=== PATIENT | male | born 1980 | race African-American/Black ===

== ENCOUNTER 2021-03-21 01:01 | Emergency (ER) | payer SELFPAY ==
[~2021-03-21] VITALS: Ht 182.9 cm; Wt 90.9 kg
[~2021-03-21 01:01] MED LIST: AMLO10TA4 PO; IBUP200T77 PO; LEVO750T31 PO; OMEP20CA16 PO; TRAM-48 PO
[2021-03-21] MEDS ORDERED: VANCOMYCIN PER PHARMACY MC PRN (03:15)
[2021-03-21] MEDS ORDERED: LIDOCAINE/EPI/TETRACAINE TOPICAL GEL 3 ML. TP ONE (03:30)
[2021-03-21] MEDS ORDERED: MORPHINE SULFATE 4 MG/ML INJ. IVP ONE ×2 (03:30→07:00)
[2021-03-21] MEDS ORDERED: VANCOMYCIN 2 GM in IV NORMAL SALINE 500ML BAG 500 ML IV ONE (04:00)
[2021-03-21 04:12] LABS: BASO # 0.1 x10^3/uL (0.0-0.2); BASO % 1 % (0-3); EOS # 0.2 x10^3/uL (0.0-0.7); EOS % 1 % (0-3); HEMOGLOBIN 13.5 g/dL (13.0-17.5); LYMPH # 1.4 x10^3/uL (1.0-4.8); LYMPH % 9 % (24-48); MEAN CORPUSCULAR HEMOGLOBIN 31 pg (25-35); MEAN CORPUSCULAR HGB CONC 34 g/dL (31-37); MEAN CORPUSCULAR VOLUME 92 fL (79-100); MONO # 1.1 x10^3/uL (0.0-1.1); MONO % 7 % (0-9); NEUT # 12.8 x10^3/uL (1.8-7.7); NEUT % 82 % (31-73); PLATELET COUNT 313 x10^3/uL (140-400); RED BLOOD COUNT 4.34 x10^6/uL (4.30-5.70); RED CELL DISTRIBUTION WIDTH 13.9 % (11.5-14.5); WHITE BLOOD COUNT 15.7 x10^3/uL (4.0-11.0)
[2021-03-21 04:21] LABS: CALCIUM 8.8 mg/dL (8.5-10.1); GFR 100.1; POTASSIUM 3.7 mmol/L (3.5-5.1)
--- NOTE | 2021-03-21 04:21 | PHYS DOC ---
Past Medical History Past Medical History: Renal Failure Additional Past Medical Histor: RECEIVED ONE ROUND OF DIALYSIS LAST YEAR WITH KIDNEY FAILURE Past Surgical History: No Surgical History Additional Past Surgical Histo: right foot; right finger Smoking Status: Current Every Day Smoker Alcohol Use: None Drug Use: Marijuana General Adult EDM: Chief Complaint: DENTAL PROBLEM HPI: HPI: Patient is a 40 year old male who presents with significant left cheek swelling and pain and redness. He reports symptoms have been present for "a couple days." He admits that he thought this started out as a pimple, and he has been incessantly picking and poking at it with tweezers. He denies fevers or chills. He denies any specific other injury or trauma. He denies any dental or oral injury. He denies any actual dental pain. He has a previous history of scalp abscess. He denies headache, dizziness, nausea vomiting, chest pain, dyspnea, sore throat, voice changes. No other complaints. Review of Systems: Review of Systems: Constitutional: Denies fever or chills. [] Eyes: Denies change in visual acuity. [] HENT: Denies nasal congestion or sore throat. [] Respiratory: Denies cough or shortness of breath. [] Cardiovascular: Denies chest pain or edema. [] GI: Denies abdominal pain, nausea, vomiting Musculoskeletal: Denies back pain or joint pain. [] Integument: Left facial swelling, pain, drainage, redness and abscess Neurologic: Denies headache, focal weakness or sensory changes. [] Lymphatic: Reports that he feels like the glands in front of his left ear are swollen. Psychiatric: Denies depression or anxiety. He does have a history of methamphetamine use. [] Heart Score: C/O Chest Pain: No Risk Factors: Risk Factors: DM, Current or recent (<one month) smoker, HTN, HLP, family history of CAD, obesity. Risk Scores: Score 0 - 3: 2.5% MACE over next 6 weeks - Discharge Home Score 4 - 6: 20.3% MACE over next 6 weeks - Admit for Clinical Observation Score 7 - 10: 72.7% MACE over next 6 weeks - Early Invasive Strategies Current Medications: Current Medications Medications (Trade) Dose Ordered Sig/Tru Start Time Stop Time Status Last Admin Dose Admin Morphine Sulfate (Morphine Sulfate) 4 mg 1X ONCE 03/21/21 03:30 03/21/21 03:31 DC 03/21/21 04:14 4 MG Tetracaine/ Epinephrine/ Lidocaine (Let (Cnyw-[id number]-Tppdm) Gel) 3 ml 1X ONCE 03/21/21 03:30 03/21/21 03:31 DC Vancomycin HCl (Vanco Per Pharmacy) 1 each PRN DAILY PRN 03/21/21 03:15 Vancomycin HCl 2 gm/Sodium Chloride 500 ml @ 250 mls/hr 1X ONCE 03/21/21 04:00 03/21/21 05:59 03/21/21 04:15 250 MLS/HR Allergies: Allergies: Allergies Coded Allergies Type Severity Reaction Last Updated Verified No Known Allergies Allergy Unknown 05/12/15 No Physical Exam: PE: Constitutional: Well developed, well nourished, no acute distress, non-toxic appearance. [] HENT: Normocephalic, atraumatic, bilateral external ears normal, oropharynx is patent, clear, uvula midline, no oropharyngeal or mucosal buccal rash or swelling, no dental tenderness or obvious cute dental trauma. No trismus. No drooling. He has a large left cheek abscess with induration, fluctuance and purulent drainage. There is significant soft tissue swelling and tenderness. Eyes: PERRL, EOMI, conjunctiva normal, no discharge. [] Neck: Normal range of motion, no tenderness, supple, no stridor. [] Cardiovascular:Heart rate regular rhythm, no murmur [] Lungs & Thorax: Bilateral breath sounds clear to auscultation [] Abdomen: Bowel sounds normal, soft, no tenderness, no masses, no pulsatile m asses. [] Skin: Large left cheek abscess with cellulitis, soft tissue swelling, soft tissue tenderness. No crepitus or subcutaneous emphysema. No dusky discoloration or evidence of obvious necrosis. Extremities: No tenderness, no cyanosis, no clubbing, ROM intact, no edema. [] Neurologic: Alert and oriented X 3, normal motor function, normal sensory function, no focal deficits noted. [] Psychologic: Affect normal, judgement normal, mood normal. [] Current Patient Data: Labs: Laboratory Tests Test 03/21/21 04:00 White Blood Count 15.7 x10^3/uL (4.0-11.0) H Red Blood Count 4.34 x10^6/uL (4.30-5.70) Hemoglobin 13.5 g/dL (13.0-17.5) Hematocrit 40.0 % (39.0-53.0) Mean Corpuscular Volume 92 fL (79-100) Mean Corpuscular Hemoglobin 31 pg (25-35) Mean Corpuscular Hemoglobin Concent 34 g/dL (31-37) Red Cell Distribution Width 13.9 % (11.5-14.5) Platelet Count 313 x10^3/uL (140-400) Neutrophils (%) (Auto) 82 % (31-73) H Lymphocytes (%) (Auto) 9 % (24-48) L Monocytes (%) (Auto) 7 % (0-9) Eosinophils (%) (Auto) 1 % (0-3) Basophils (%) (Auto) 1 % (0-3) Neutrophils # (Auto) 12.8 x10^3/uL (1.8-7.7) H Lymphocytes # (Auto) 1.4 x10^3/uL (1.0-4.8) Monocytes # (Auto) 1.1 x10^3/uL (0.0-1.1) Eosinophils # (Auto) 0.2 x10^3/uL (0.0-0.7) Basophils # (Auto) 0.1 x10^3/uL (0.0-0.2) Laboratory Tests 03/21/21 04:00 Vital Signs: Vital Signs Date Time Temp Pulse Resp B/P (MAP) Pulse Ox O2 Delivery O2 Flow Rate FiO2 03/21/21 04:14 18 100 Room Air 03/21/21 03:22 98.9 115 133/92 (106) 98.9 EKG: EKG: [] Radiology/Procedures: Radiology/Procedures: The patient is given IV Morphine x 2 and PO [place] for pain. IV Vancomycin ordered. I have discussed the findings, ddx and plan of care with the patient. He tolerated I&D well. Home care, wound care instructions are given. I instructed him to avoid picking at the area. I recommend that he come back in 2 days for wound check and packing removal. I explained that he may require repeat I&D at that time. He is resting comfortably and reports feeling much better. I explained the importance of taking the full course of his antibiotics, adhering to proper hand hygiene and skin care. He is comfortable with the plan of care and verbalizes understanding of instructions given. Strict return precautions are given. Course & Med Decision Making: Course & Med Decision Making Pertinent Labs and Imaging studies reviewed. (See chart for details) [] María Elenaon Disclaimer: Dragon Disclaimer: This electronic medical record was generated, in whole or in part, using a voice recognition dictation system. Departure Departure Impression: Primary Impression: Facial abscess Disposition: HOME / SELF CARE / HOMELESS Condition: STABLE Referrals: NO PCP (PCP) Patient Instructions: Abscess Additional Instructions: Take the full course of antibiotics. Return to the ER in 2 days for wound check and packing removal. Return sooner for more severe pain, more severe swelling, or any other concerns. Scripts Hydrocodone/Acetaminophen (Hydrocodone-Acetamin 5-325 mg) 1 Each Tablet 1 EACH PO PRN Q4-6HRS PRN for PAIN for 5 Days, #20 TAB 0 Refills Prov: KEITH MOLINA MD 03/21/21 Sulfamethoxazole/Trimethoprim (BACTRIM DS TABLET) 1 Each Tablet 1 TAB PO BID for 10 Days, #20 TAB 0 Refills Prov: RYLEE RENEE DO 03/21/21 RYLEE RENEE DO Mar 21, 2021 04:21
[2021-03-21 04:22] LABS: C-REACTIVE PROTEIN 45.3 mg/L (0-3.3)
[2021-03-21] MEDS ORDERED: LIDOCAINE 1%/EPI 1:100,000 20 ML VIAL. ONE (04:55)
--- NOTE | 2021-03-21 06:27 | NUR ---
Pharmacy Vancomycin Dosing Note S:Consulted to monitor and dose vancomycin started 03/21/21. O:JOSELIN DOS SANTOS is a 40 year old M with JAW INFECTION . Height: 6 feet, 0 inches Weight: 90.9 kg [place] Body Weight: 77.60 Adjusted Body Weight: 82.92 Dosing Weight: Actual Other Antibiotics: LABS: Last BUN: 12 Last Creatinine: 1 Creatinine Clearance: 115 mL/min Last WBC: 15.7 Last Procalcitonin: Tmax (past 24 hours): Microbiology: I/O: Drug Levels: Last level: on at Last dose given 03/21/21 at 0415 Vancomycin Dosing: Loading Dose: 2000 mg x1 Dosing Weight: Actual Target Trough: 10-20 A: Based on: WT AND CRCL P: 1. Begin Vancomycin 1250 mg IV q8h 2. Follow up Trough level on 03/22/21 at 0330 3. Pharmacy will continue to monitor, follow and adjust therapy as needed. ARIEL PEREZ RPH, 03/21/21626 Signed: 03/21/21 at 626 by ARIEL PEREZ RPH PHA
[2021-03-21] MEDS ORDERED: HYDR-2761 PO ×3 (06:38→07:38)
[2021-03-21] MEDS ORDERED: HYDROcodone/APAP 5/325MG 1 TAB TABLET PO ONE (07:00)
[2021-03-21] MEDS ORDERED: LIDOCAINE 1%/EPI 1:100,000 20 ML VIAL. INJ ONE (07:00)
[2021-03-21] MEDS ORDERED: SULF1TAB24 PO (07:40)
[2021-03-21] MEDS ORDERED: HYDR-2759 PO (07:41)
[2021-03-21 07:54] VITALS: BP 134/81
[2021-03-21] MEDS ORDERED: VANCOMYCIN 1.25 GM in IV NORMAL SALINE 250ML 250 ML IV SCH (12:00)
== END 2021-03-21 07:57 | disposition home or self-care (01) ==
LOC: ER 01:01
DX: L02.01 Cutaneous abscess of face (principal); N19 Unspecified kidney failure; F17.200 Nicotine dependence, unspecified, uncomplicated; Z99.2 Dependence on renal dialysis
CPT/HCPCS: 10060; 36415; 80048; 85025; 85651; 86140; 87040; 96365; 96366; 96375; 96376; 99285; J2270; J3370; J3490; J7040